=== PATIENT | male | born 1965 | race Caucasian/White ===

== ENCOUNTER 2019-09-13 21:04 | Emergency (ER) | payer OTHER ==
[~2019-09-13] VITALS: Ht 180.3 cm; Wt 102.0 kg
[2019-09-13] MEDS ORDERED: ACET-3067 PO (21:43)
[2019-09-13 22:05] VITALS: BP 137/86
== END 2019-09-13 22:06 | disposition home or self-care (01) ==
LOC: ER 21:05
DX: M72.2 Plantar fascial fibromatosis (principal); Z79.899 Other long term (current) drug therapy
CPT/HCPCS: 73610; 99283

== ENCOUNTER 2020-05-01 11:48 | Emergency (ER) | payer MEDICAID, OTHER ==
[~2020-05-01] VITALS: Ht 180.3 cm; Wt 112.7 kg
[2020-05-01 13:54] VITALS: BP 116/85
[2020-05-01] MEDS ORDERED: ketorolac tromethamine 15mg/ml inj. IM ONE (14:10)
[2020-05-01] MEDS ORDERED: HYDROcodone/acetaminophen 10/325mg tab PO ONE (14:10)
== END 2020-05-01 14:37 | disposition home or self-care (01) ==
LOC: ER 11:49
DX: M25.512 Pain in left shoulder (principal)
CPT/HCPCS: 73030; 96372; 99284; J1885

== ENCOUNTER 2025-02-01 13:32 | Outpatient (CLI) | payer MEDICAID ==
--- NOTE | 2025-02-01 14:27 | RADIOLOGY REPORT ---
CLINICAL INDICATION: RIGHT ELBOW PAIN TECHNIQUE: 3 radiographic views of the right elbow were obtained. Comparison: None FINDINGS/IMPRESSION: There is no evidence of acute fracture or dislocation. The visualized joint space is well maintained. The alignment is anatomical. There is no radiopaque foreign body.
== END 2025-02-01 23:59 | disposition home or self-care (01) ==
LOC: RAD 13:32
PROVIDERS: ATTEND Student in an Organized Health Care Education/Training Program
DX: M25.521 Pain in right elbow (principal)
CPT/HCPCS: 73080